=== PATIENT | female | born 1995 | race Caucasian/White ===

== ENCOUNTER 2018-08-16 09:39 | Emergency (ER) | payer OTHER ==
[~2018-08-16] VITALS: Ht 152.4 cm; Wt 58.1 kg
== END 2018-08-16 17:19 | disposition home or self-care (01) ==
LOC: ER 09:39
DX: O46.8X1 Other antepartum hemorrhage, first trimester (principal); Z34.81 Encounter for supervision of other normal pregnancy, first trimester